=== PATIENT | female | born 1950 | race African-American/Black ===

== ENCOUNTER 2023-10-12 11:35 | Outpatient (CLI) | payer MEDICARE, SELFPAY ==
[2023-10-12 19:18] LABS: Alanine Aminotransferase 22 U/L (6-35); Albumin Level 4.6 g/dL (3.5-5.1); Alkaline Phosphatase 65 U/L (38-126); Anion Gap 6 mmol/L (8-16); Aspartate Amino Transferase 36 U/L (14-36); Blood Urea Nitrogen 15 mg/dL (7-17); Calcium 10.2 mg/dL (8.4-10.2); Carbon Dioxide 35 mmol/L (22-30); Chloride 98 mmol/L (98-107); Cholesterol 264 mg/dL (0-200); Estimated Glomerular Filt Rate > 60; Glucose 89 mg/dL (65-110); Potassium 3.9 mmol/L (3.4-5.0); Sodium 139 mmol/L (137-145); Triglycerides 66 mg/dL (<150)
[2023-10-12 19:20] LABS: LDL Cholesterol Direct 92 mg/dL
[2023-10-12 19:25] LABS: Vitamin D 25 Hydroxy 58.8 ng/mL
[2023-10-12 19:32] LABS: Basophils Absolute Auto 0.1 K/mm3 (0.0-0.1); Basophils Percent Auto 1.8 % (0.2-1.2); Eosinophils Absolute Auto 0.2 K/mm3 (0-0.3); Eosinophils Percent Auto 4.5 % (0-4.4); Hematocrit 45.8 % (37.0-47.0); Hemoglobin 14.5 g/dL (12.0-15.0); Lymphocytes Absolute Auto 1.71 K/mm3 (0.9-3.2); Lymphocytes Percent Auto 51.7 % (18.3-44.2); Mean Corpuscular HGB Conc 31.7 g/dl (32-36); Mean Corpuscular Hemoglobin 27.3 pg (26-34); Mean Corpuscular Volume 86.3 fl (80-100); Mean Platelet Volume 10.2 fl (7.4-10.4); Monocytes Absolute Auto 0.5 K/mm3 (0.1-0.6); Monocytes Percent Auto 15.4 % (2.6-8.5); Neutrophils Absolute Auto 0.9 K/mm3 (1.3-6.7); Neutrophils Percent Auto 26.6 % (45.5-73.1); Platelet Count Result 274 k/mm3 (150-375); Red Blood Count 5.31 M/mm3 (4.2-5.4); Red Cell Distribution Width 14.6 % (11.5-14.5); White Blood Count 3.3 K/mm3 (4.5-10.0)
[2023-10-12 19:41] LABS: Thyroid Stimulating Hormone 0.654 uIU/mL (0.465-4.680)
[2023-10-12 20:21] LABS: HDL Direct 152 mg/dL
== END 2023-10-12 11:36 | disposition home or self-care (01) ==
LOC: ANHGOSHLAB 11:37
PROVIDERS: PCP Clinical Nurse Specialist; Visit Provider Clinical Nurse Specialist
DX: E55.9 Vitamin D deficiency, unspecified (principal); I10 Essential (primary) hypertension; Z13.29 Encounter for screening for other suspected endocrine disorder
CPT/HCPCS: 36415; 80053; 80061; 82306; 84443; 85025

== ENCOUNTER 2024-10-15 10:43 | Outpatient (CLI) | payer MEDICARE, SELFPAY ==
[2024-10-15 18:56] LABS: Basophils Percent Auto 0.8 % (0.2-1.2); Eosinophils Absolute Auto 0.1 K/mm3 (0-0.3); Eosinophils Percent Auto 2.4 % (0-4.4); Hemoglobin 14.5 g/dL (12.0-15.0); Immature Granulocyte Absolute 0.01 K/mm3 (0.00-0.031); Immature Granulocyte Percent A 0.3 % (0-0.5); Lymphocytes Absolute Auto 1.77 K/mm3 (0.9-3.2); Lymphocytes Percent Auto 47.6 % (18.3-44.2); Mean Corpuscular Hemoglobin 28.2 pg (26-34); Mean Corpuscular Volume 85.6 fl (80-100); Mean Platelet Volume 10.3 fl (7.4-10.4); Monocytes Absolute Auto 0.6 K/mm3 (0.1-0.6); Monocytes Percent Auto 14.8 % (2.6-8.5); Neutrophils Absolute Auto 1.3 K/mm3 (1.3-6.7); Neutrophils Percent Auto 34.1 % (45.5-73.1); Platelet Count Result 244 k/mm3 (150-375); Red Blood Count 5.14 M/mm3 (4.2-5.4); Red Cell Distribution Width 14.8 % (11.5-14.5); White Blood Count 3.7 K/mm3 (4.5-10.0)
[2024-10-15 19:21] LABS: LDL Cholesterol Direct 72 mg/dL
[2024-10-15 19:22] LABS: Alanine Aminotransferase 22 U/L (6-35); Albumin Level 4.5 g/dL (3.5-5.1); Alkaline Phosphatase 71 U/L (38-126); Anion Gap 3 mmol/L (4-12); Aspartate Amino Transferase 51 U/L (14-36); Bilirubin,Total 1.1 mg/dL (0.2-1.3); Blood Urea Nitrogen 14 mg/dL (7-17); Calcium 10.3 mg/dL (8.4-10.2); Carbon Dioxide 36 mmol/L (22-30); Chloride 97 mmol/L (98-107); Cholesterol 260 mg/dL (0-200); Estimated Glomerular Filt Rate > 60; Glucose 97 mg/dL (65-110); Potassium 4.2 mmol/L (3.4-5.0); Sodium 136 mmol/L (137-145); Triglycerides 77 mg/dL (<150)
[2024-10-15 19:44] LABS: Thyroid Stimulating Hormone 0.847 uIU/mL (0.465-4.680)
[2024-10-15 21:54] LABS: HDL Direct 163 mg/dL
== END 2024-10-15 10:44 | disposition home or self-care (01) ==
PROVIDERS: PCP Internal Medicine; Visit Provider Clinical Nurse Specialist
DX: T78.40XA Allergy, unspecified, initial encounter (principal); I10 Essential (primary) hypertension; E55.9 Vitamin D deficiency, unspecified; Z13.29 Encounter for screening for other suspected endocrine disorder
CPT/HCPCS: 36415; 80053; 80061; 82306; 83735; 84443; 85025

== ENCOUNTER 2025-09-26 12:35 | Outpatient (CLI) | payer MEDICARE, SELFPAY ==
--- OUTSIDE RECORDS SUMMARY | 2025-09-26 19:35 | XMS_ITS | Clinical Summary ---
Author Organization [facility] Address [address] [place] [address] Care Team Providers Care Labor Arbitrator Hearing Office Name Role Phone Yohana Awan GIFTS OFFICER-GLASS CUTTING MACHINE OPERATOR Primary Care Provider [phone] Source Comments [facility],non-owned Affiliates and Associated Physician Practices is amultiple site organization consisting of ambulatory clinics and hospital sitesin [place], [place], [place] and [place]. This disclosure is being madepursuant to the Care Everywhere program and may not contain all information available regarding this patient. Last updated 18.[facility] Allergies No known active allergies Medications * Be aware that medications may not be up to date on this document. Alwaysverify current medications with the patient. vitamin D, cholecalciferol , 1000 UNIT tabletIndicatio ns:Pain of right thumb Take 2 (two) tablets by mouth once daily Active fluticasone propionate (FLONASE) 50 MCG/ACT nasal spray [place] 1-2 Sprays into each nostril once daily 16 g 11 5 Active Magnesium Gluconate (MAG-G) 500 (27 MG) MG Take 1 tablet by mouth 2 times daily 60 tablet 5 8 Active Multiple Vitamins-Minera ls (MULTIVITAL PO) Active neomycin-bacitr acin-polymyxin [id number] ophthalmic ointment Instill into left eye 3 times daily 1 tube 1 1 Active hydroCHLOROthia zide (Hydrodiuril) 25 MG tablet TAKE 1 TABLET BY MOUTH ONCE DAILY. PATIENT DUE FOR APPOINTMENT 100 tablet 2 3 Active propranolol CR 24hr (Inderal LA) 80 MG capsule TAKE 1 CAPSULE BY MOUTH ONCE DAILY. PATIENT NEEDS APPOINTMENT. 100 capsule 2 3 Active Active Problems Problem Noted Date Diagnosed Date Protein-calorie malnutrition, unspecified severi ty 12/16/2022 HTN (hypertension) 10/08/2008 MVP (mitral valve prolapse) 10/08/2008 Seasonal allergies History of colonic polyps Resolved Problems Problem Noted Date Diagnosed Date Resolved Date Atrophic vaginitis 08/21/2012 7 Screening for condition 10/08/200801/19 Overview (08/21/2015): Adult Abstraction Problem List Screening Dexa Scan (Bone Density): Result: Negative Date: 03/16/2006 Colonoscopy: Result: Not avail in chart Date: 01/2007 Occult Blood (Stool Cards): Result: Negative Date: 06/10/2008 Pap Smear: Result: Negative Date: 06/10/2008 Mammogram: Result: Negative Date: 06/19/2008 Hypertension 09/16/2015 Immunizations Immunization Administration Dates Next Due [employer] ([employer]) primary monoval ent 12+ yr 0.3mL Purple cap 02/02/2021,01/12/2021 FLU VACCINE TRI IIV3 SPLIT I M (FLUVIRIN) 10/01/2013 INFLUENZA VACCINE 09/11/2018,08/22/2017,08/25/20 15 INFLUENZA VACCINE, ADJUVANTE D, QUADR. (FLUAD QUADRIVALENT; 65Y+) (AIIV4) 09/12/2021 INFLUENZA VACCINE, HIGH-DOSE , QUADR. (FLUZONE HIGH-DOSE QUADRIVALENT; 65Y+), 0.7 ML (HD-IIV4) 07/28/2022,08/28/2020,08/22/2017,2015 INFLUENZA VACCINE, QUADR. (F LUZONE; FLULAVAL; FLUARIX; AFLURIA QUADRIVALENT; 6MO+), 0.5 ML (IIV4) 07/31/2019 Influenza Pf Intradermal (ADULT) 09/09/2014 PNEUMOCOCCAL PPSV23 08/30/2016 Pneumococcal Pcv13 Conj 09/16/2015 TDAP (7yrs+) 01/30/2014 Zoster Hzv Vacc Recombinant Inj Im 09/05/2019, Family History Medical History Relation Name Comments Hypertension Brother 4 Hypertension Mother Hypertension Sister 4 Relation Name Status Comments Brother 1 Alive Brother 2 Alive Brother 3 Alive Brother 4 Father Mother Alive Sister 1 Alive Sister 2 Alive Sister 3 Alive Sister 4 Social History Tobacco Use Types Packs/Day Years Used Date Smoking Tobacco: Former Smokeless Tobacco: Never Tobacco Cessation:Counseling Given: Not Answered Comments:about 20 yrs ago Alcohol Use Standard Drinks/Week Comments Yes 0 (1 standard drink = 0.6 oz pur e alcohol) socially PHQ-2 Answer Date Recorded PHQ2 TOTAL SCORE 0 12/16/2022 Comments No Sex and Gender Information Value Date Recorded Sex Assigned at Not on file Legal Sex Female 6:00 AM HOT BRAIDER Gender Identity Not on file Sexual Orientation Not on file 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 Not on file Not on file Last Filed Vital Signs Vital Sign Reading Time Taken Comments Blood Pressure 128/77 05/08/2025 9:16 AM CDT Pulse 64 05/08/2025 9:16 AM CDT Temperature 36.1 C (96.9 F) 05/08/2025 9:16 AM CDT Respiratory Rate 23 05/08/2025 9:16 AM CDT Oxygen Saturation 97% 05/08/2025 9:16 AM CDT Inhaled Oxygen Concentration - - Weight 49.9 kg (110 lb) 05/08/2025 7:32 AM CDT Height 157.5 cm (5' 2) 05/08/2025 7:32 AM CDT Body Mass Index 20.12 05/08/2025 7:32 AM CDT Plan of Treatment Health Maintenance Due Date Last Done Comments COLOGUARD (AGES 45-75) - COLON CA SCREENING 1950 CT COLONOGRAPHY - COLON CA SCREENING 1950 FIT - COLON CA SCREENING 1950 FLEX SIG - COLON CA SCREENING 1950 DTAP/TDAP/TD VACCINES (2 - Td or Tdap) 01/31/2024 01/30/2014 DEPRESSION SCREENING 11/21/2024 12/16/2022 MEDICARE AWV CALENDAR YEAR 2024 12/16/2022, 02/11/2021, 06/26/2019 Respiratory Syncytial Virus (RSV) Vaccine Pt: or over 60 yrs (1 - 1-dose 75+ series) 2025 COVID-19 VACCINE ( season) 2025 07/28/2022, 03/29/2022, 09/12/2021, Additional history exists INFLUENZA VACCINE (#1) 2025 , 09/12/2021, 08/28/2020, Additional history exists MAMMOGRAM 02/07/2027 02/07/2025, 01/19, 11/18/2022, Additional history exists COLON MONITORING 12/07/2027 12/07/2022, , 10/11/2017, Additional history exists Colorectal Cancer Screening 12/07/2027 LIPID TESTING 12/16/2027 12/16/2022, 07/2019, 06/27/2019, Additional history exists COLONOSCOPY - COLON CA SCREENING 12/07/2032 12/07/2022, 12/07/2022, 10/11/2017, Additional history exists HEPATITIS C SCREENING Completed 03/05/2013 PNEUMOCOCCAL VACCINE 50+ Completed 08/30/2016, 08/22 BONE DENSITY TESTING Completed 09/22/2016 ZOSTER VACCINE Completed 09/05/2019, 06/27/2019 HEPATITIS B VACCINE Aged Out No longe r eligible based on patient's age to complete this topic HIB VACCINE Aged Out No longer eligi ble based on patient's age to complete this topic HPV VACCINE Aged Out No longer eligi ble based on patient's age to complete this topic MENINGOCOCCAL (Group B) VACCINE SHARED DECISION-MAKING Aged Out No longer eligible based on patient's age to complete this topic MENINGOCOCCAL GROUPS A/C/Y/W VACCINE Aged Out No longer eligible based on patient's age to complete this topic Goals Goal Patient Goal Type Associated Problems Recent Progress Patient-Stated? Author Blood Pressure < 140/90 Blood Pressure 128/77(2024 9:16 AM CDT) Ericka Malcolm MA Medical Devices Implanted Type Area Career Services Representative Device Identifier Shelf Expiration Date Model / Serial / Lot Lens Iol 0 D +24.5 Stu Mod L Bcnvx - [id number] Implanted:Qty: 1 on 04/24/2025 by Mignon Garcia MD at [facility] Left: [employer] 05/01/2028 [id number] / [id number] / Clareon Uv Iol Implanted:Qty: 1 on 05/08/2025 by Mignon Garcia MD at [facility] Right: [employer] 03/09/2027 [id number] / [id number] / Description:Implant size kenn ified during time out by Dr. Garcia. / Annalisa JUARESdesign assembler Procedure Name Priority Date/Time Associated Diagnosis Comments MAMMO BILAT SCREENING W CHAN Routine 02/07/2025 11:43 AM CDT Encounter for screening mammogram for malignant neoplasm of breast LIPID PROFILE Routine 12/16/2022 11:45 AM HOT BRAIDER Mixed hyperlipidemia ENDOSCOPY, COLON, SCREENING 12/07/2022 DEXA BONE DENSITY 2 SITES Routine 09/22/2016 12:17 PM CDT Disorder of bone density and structure, unspecified Osteopenia HEPATITIS C ANTIBODY Routine 03/05/2013 9:25 AM CDT Need for hepatitis C screening test from Last 3 Months or Most Recently Relevant to Health Maintenance Results * Mammo Bilat Screening W Chan (02/07/2025 11:43 AM CDT) Anatomical Region Laterality Modality Breast Bilateral Mammography 02/07/2025 12:2 9 PM CDT Impressions 02/07/2025 12:33 PM CDT IMPRESSION: Annual screening mammography is recommended. OVERALL FINAL ASSESSMENT: BI-RADS Category 1: Negative. > Interpreting Provider: Augusto Benitez MD on 02/07/2025 12:33 PM Narrative 02/07/2025 12:33 PM CDT EXAMINATION: BILATERAL DIGITAL SCREENING MAMMOGRAM AND BILATERAL BREAST TOMOSYNTHESIS HISTORY: Screening. COMPARISON: Serial examinations dating back to September 29, 2010. TECHNIQUE: BILATERAL digital breast tomosynthesis (DBT) and synthetic 2D digital mammogram images were obtained (bilateral craniocaudal and mediolateral oblique projections) including computer aided detection (CAD.) BREAST PARENCHYMAL COMPOSITION:Category B: There are scattered areas of fibroglandular density. MAMMOGRAM FINDINGS: There is no suspicious finding in either breast. us David Stratton DO MAMMO ORDERABLES Final Resu lt * (ABNORMAL) LIPID PROFILE (12/16/2022 11:45 AM HOT BRAIDER) Cholesterol 265(H) 100 - 199 mg/dL [facility] ACCOUNT BILL Triglycerides 71 0 - 149 mg/dL [facility] ACCOUNT BILL HDL Cholesterol 141 >39 mg/dL [facility] ACCOUNT BILL VLDL Calculated 11 5 - 40 mg/dL [facility] ACCOUNT BILL LDL Calculated 113(H) 0 - 99 mg/dL [facility] ACCOUNT BILL Comment NOT AVAILABLE [facility] ACCOUNT BILL Comment: FASTING Result cannot be obtained for this observation. Blood BLOOD SPECIMEN / Unknown 12/16/2022 11:45 AM HOT BRAIDER 12/16/2022 Narrative Resulting Agency Comment Lab Testing performed at: [facility] [id number] [facility] [id number] us Alphonse Larose DO LAB - CHEMISTRY ORDERABLES Fi nal Result [facility] ACCOUNT BILL [address] [place] [address] * ENDOSCOPY, COLON, SCREENING (12/07/2022) 12/07/2022 Narrative 12/07/2022 Ordered by an unspecified provider. us Scanned Document GI PROCEDURE ORDERABLES Final R esult * DEXA BONE DENSITY 2 SITES (09/22/2016 12:17 PM CDT) Anatomical Region Laterality Modality Mammography 09/22/2016 12:2 3 PM CDT Narrative 09/22/2016 12:49 PM CDT BONE MINERAL DENSITY STUDY INDICATION: Osteoporosis screening. Postmenopausal status. FINDINGS: The average bone mineral density from L1 to L4 is 1.700 g/cm2. The T-score is 4.3 and the Z-score is 5.3. The average bone mineral density of the total mean hip is 1.242 g/cm2. The T-score is 1.9 and the Z-score is 2.2. ASSESSMENT: Findings consistent with normal total mean bone mineral density. There is no significant increased fracture risk. WORLD HEALTH ORGANIZATION DEFINITIONS OSTEOPENIA = -1 to -2.5 SD BELOW T SCORE. OSTEOPOROSIS = Less than -2.5 SD BELOW T SCORE Edited by Annetta To on 09/22/2016 12:26 PM Procedure Note Gricelda Chacko MD - 09/22/2016 BONE MINERAL DENSITY STUDY INDICATION: Osteoporosis screening. Postmenopausal status. FINDINGS: The average bone mineral density from L1 to L4 is 1.700 g/cm2. The T-score is 4.3 and the Z-score is 5.3. The average bone mineral density of the total mean hip is 1.242 g/cm2. The T-score is 1.9 and the Z-score is 2.2. ASSESSMENT: Findings consistent with normal total mean bone mineral density. There is no significant increased fracture risk. WORLD HEALTH ORGANIZATION DEFINITIONS OSTEOPENIA = -1 to -2.5 SD BELOW T SCORE. OSTEOPOROSIS = Less than -2.5 SD BELOW T SCORE Edited by Annetta To on 09/22/2016 12:26 PM Alphonse Larose DO DEXA ORDERABLES Final Result * HEPATITIS C ANTIBODY (03/05/2013 9:25 AM CDT) Hepatitis C Virus Antibody 0.1 0.0 - 0.9 s/co ratio [facility] INSURANCE BILL Comment: Negative: < 0.8 Indeterminate 0.8 - 0.9 Positive: > 0.9 . In order to reduce the incidence of a false positive result, the CDC recommends that all s/co ratios between 1.0 and 10.9 be confirmed with additional RIBA or PCR testing. Blood specimen (specimen) BLOOD SPECIMEN / Unknown 03/05/2013 9:25 AM CDT 03/05/2013 1:06 PM CDT Narrative Resulting Agency Comment [address] [id number] Louise Ortiz MD LAB - CHEMISTRY ORDERABLE S Final Result [facility] INSURANCE BILL [address] [place] [address] from Last 3 Months or Most Recently Relevant to Health Maintenance Insurance A[employer] MEDICARE ADV Advance Directives Documents on File Type Date Recorded Patient Furnace Checker Expl anation Adv Directive/Living Will/POA 10/08/2008 Care Teams Labor Arbitrator Hearing Office Relationship Specialty Start Date End Date Yohana Awan APRN-GLASS CUTTING MACHINE OPERATOR [address] [place] [address] PCP - General Certified Clinical Nurse Specialist 04/19/25
--- OUTSIDE RECORDS SUMMARY | 2025-09-26 19:35 | XMS_ITS | Clinical Summary ---
Author Organization [facility] [address] [place] [address] [place] [phone] Care Team Providers Care Fiberglass Bonding Machine Tender Name Role Phone Alphonse Larose DO Primary Care Provider Dianne lloyd Immunizations Immunization Administration Dates Next Due (PFIZER)(12 YR UP) COVID-19 VACCINE - EMERGENCY USE AUTHORIZATION, MRNA, [id number](PF) 30 MCG/0.3 ML IM SUSP 02/02/2021,01/12/2021 Social History Tobacco Use Types Packs/Day Years Used Date Smoking Tobacco: Never Assessed Comments Unknown Sex and Gender Information Value Date Recorded Sex Assigned at Not on file Legal Sex Female 9:20 PM GAS BURNER OPERATOR Gender Identity Not on file Sexual Orientation Not on file Plan of Treatment Health Maintenance Due Date Last Done Comments COLORECTAL SCREENING 1995 Colorectal Cancer Screening 1995 FIT-DNA Q 3 years 1995 FIT/FOBT Q 1 year 1995 Flex Sig/CT Colonography Q 5 years 1995 ZOSTER VACCINE (1 of 2) 2000 OSTEOPOROSIS SCREENING 2015 DTAP/TDAP/TD VACCINES (2 - Td or Tdap) 01/31/2024 RSV VACCINE (60+ or ) (1 - 1-dose 75+ series) 2025 INFLUENZA VACCINE (#1) 2025 07/31/2019 COVID-19 Vaccine (3 - season) 2025, 01/12/2021 PNEUMOCOCCAL VACCINE 50+ YEARS Completed 08/30/2016 , 09/16/2015 Insurance MEDICARE PART A AND B Care Teams Fiberglass Bonding Machine Tender Relationship Specialty Start Date End Date Alphonse Larose DO PCP - General Family Practice 01/12/21
== END 2025-09-26 12:36 | disposition home or self-care (01) ==
LOC: ANHAUDIO 12:35
PROVIDERS: PCP Internal Medicine; Visit Provider Otolaryngology
DX: H90.6 Mixed conductive and sensorineural hearing loss, bilateral (principal); H61.23 Impacted cerumen, bilateral; J31.0 Chronic rhinitis; J34.2 Deviated nasal septum
CPT/HCPCS: 92557; 92567

== ENCOUNTER 2025-10-23 11:22 | Outpatient (CLI) | payer MEDICARE, SELFPAY ==
--- OUTSIDE RECORDS SUMMARY | 2025-10-23 13:00 | XMS_ITS | Clinical Summary ---
Author Organization [facility] [address] Address [address] [place] [id number] Care Team Providers Care Five Roll Refiner Batch Mixer Name Role Phone Alphonse Larose DO Primary Care Provider Dianne lloyd Immunizations Immunization Administration Dates Next Due (PFIZER)(12 YR UP) COVID-19 VACCINE - EMERGENCY USE AUTHORIZATION, MRNA, [id number](PF) 30 MCG/0.3 ML IM SUSP 02/02/2021,01/12/2021 Social History Tobacco Use Types Packs/Day Years Used Date Smoking Tobacco: Never Assessed Comments Unknown Sex and Gender Information Value Date Recorded Sex Assigned at Not on file Legal Sex Female 9:20 PM BUFFET SERVER Gender Identity Not on file Sexual Orientation [...] MEDICARE PART A AND B Care Teams Five Roll Refiner Batch Mixer Relationship Specialty Start Date End Date Alphonse Larose DO PCP - General Family Practice 01/12/21
--- OUTSIDE RECORDS SUMMARY | 2025-10-23 13:00 | XMS_ITS | Clinical Summary ---
Author Organization [facility] Address [address] [facility] [place] [address] Care Team Providers Care Acupuncture Physician Name Role Phone Yohana Awan SHEARER HELPER-BAGGAGE SECURITY CHECKER Primary Care Provider [phone] Source Comments [facility],non-owned Affiliates and Associated Physician Practices is amultiple site organization consisting of ambulatory clinics and hospital sitesin [place], [place], [place] and [place]. This disclosure is being madepursuant to the Care Everywhere program and may not contain all information available regarding this patient. Last updated 18.[facility] Allergies No known active allergies Medications * Be aware that medications may not be up to date on this document. Alwaysverify current medications with the patient. vitamin D, cholecalciferol , 1000 UNIT tabletIndicatio ns:Pain of right thumb Take 2 (two) tablets by mouth once daily Active fluticasone propionate (FLONASE) 50 MCG/ACT nasal spray [place] 1-2 Sprays into each nostril once daily 16 g 11 5 Active Magnesium Gluconate (MAG-G) 500 (27 MG) MG Take 1 tablet by mouth 2 times daily 60 tablet 5 8 Active Multiple Vitamins-Minera ls (MULTIVITAL PO) Active neomycin-bacitr acin-polymyxin [id number] ophthalmic ointment Instill into left eye 3 [...] 09/16/2015 Immunizations Immunization Administration Dates Next Due Corindus primary monoval ent 12+ yr 0.3mL Purple [...] on file Legal Sex Female 6:00 AM GREY GOODS MARKER Gender Identity Not on file Sexual Orientation [...] Malcolm MA Medical Devices Implanted Type Area Apartment Groundskeeper Device Identifier Shelf Expiration Date Model / Serial / Lot Lens Iol 0 D +24.5 Stu Mod L Bcnvx - [id number] Implanted:Qty: 1 on 04/24/2025 by Mignon Garcia MD at [facility] Left: [employer] 05/01/2028 CCA0T0.245 / [id number] / [employer] Uv Iol Implanted:Qty: 1 on 05/08/2025 by Mignon Garcia MD at [facility] Right: [employer] 03/09/2027 [id number] / [id number] / Description:Implant size kenn ified during time out by Dr. Garcia. / Annalisa JUAREShigh school tutor Procedure Name Priority Date/Time Associated Diagnosis Comments MAMMO BILAT SCREENING W CHAN Routine 02/07/2025 11:43 AM CDT Encounter for screening mammogram for malignant neoplasm of breast LIPID PROFILE Routine 12/16/2022 11:45 AM GREY GOODS MARKER Mixed hyperlipidemia ENDOSCOPY, COLON, SCREENING 12/07/2022 DEXA [...] * (ABNORMAL) LIPID PROFILE (12/16/2022 11:45 AM GREY GOODS MARKER) Cholesterol 265(H) 100 - 199 mg/dL [facility] [...] BLOOD SPECIMEN / Unknown 12/16/2022 11:45 AM GREY GOODS MARKER 12/16/2022 Narrative Resulting Agency Comment Lab Testing performed at: [facility] [id number] [facility] [id number] us Alphonse Larose DO LAB - CHEMISTRY ORDERABLES Fi nal Result [facility] ACCOUNT BILL [address] [place] [address] * ENDOSCOPY, COLON, SCREENING (12/07/2022) 12/07/2022 Narrative [...] 1:06 PM CDT Narrative Resulting Agency Comment [address] [id number] Louise Ortiz MD LAB - CHEMISTRY ORDERABLE S Final Result [facility] INSURANCE BILL [address] [place] [address] from Last 3 Months or Most Recently Relevant to Health Maintenance Insurance AETNA MEDICARE ADV Advance Directives Documents on File Type Date Recorded Patient Sample Sawyer Expl anation Adv Directive/Living Will/POA 10/08/2008 Care Teams Acupuncture Physician Relationship Specialty Start Date End Date Yohana Awan APRN-BAGGAGE SECURITY CHECKER [address] [place] [address] PCP - General Certified Clinical Nurse Specialist 04/19/25
[2025-10-23 18:50] LABS: Alanine Aminotransferase 24 U/L (6-35); Albumin Level 4.2 g/dL (3.5-5.1); Alkaline Phosphatase 84 U/L (38-126); Anion Gap 2 mmol/L (4-12); Aspartate Amino Transferase 44 U/L (14-36); Bilirubin,Total 0.8 mg/dL (0.2-1.3); Blood Urea Nitrogen 14 mg/dL (7-17); Calcium 10.6 mg/dL (8.4-10.2); Carbon Dioxide 34 mmol/L (22-30); Chloride 101 mmol/L (98-107); Cholesterol 230 mg/dL (0-200); Estimated Glomerular Filt Rate > 60; Glucose 88 mg/dL (65-110); Potassium 3.8 mmol/L (3.4-5.0); Sodium 137 mmol/L (137-145); Total Protein 7.6 g/dL (6.3-8.2); Triglycerides 65 mg/dL (<150)
[2025-10-23 18:54] LABS: Hematocrit 40.0 % (37.0-47.0); Hemoglobin 13.0 g/dL (12.0-15.0); Immature Granulocyte Percent A 0.0 % (0-0.5); Lymphocytes Absolute Auto 1.69 K/mm3 (0.9-3.2); Mean Corpuscular HGB Conc 32.5 g/dl (32-36); Mean Corpuscular Hemoglobin 27.3 pg (26-34); Mean Corpuscular Volume 84.0 fl (80-100); Nucleated Red Blood Cells Absolute Auto 0.000 K/mm3 (0.0-0.012); Nucleated Red Blood Cells Perc 0.0 % (0.0-0.2); Platelet Count Result 240 k/mm3 (150-375); Red Blood Count 4.76 M/mm3 (4.2-5.4); White Blood Count 4.0 K/mm3 (4.5-10.0)
[2025-10-23 19:10] LABS: MALB Creatinine Ratio 8.0 mg/g (0-30)
[2025-10-23 19:15] LABS: HDL Direct 137 mg/dL
[2025-10-23 19:38] LABS: Hemoglobin A1C 4.0 % (<5.7)
== END 2025-10-23 11:23 | disposition home or self-care (01) ==
LOC: ANHGOSHLAB 11:23
PROVIDERS: PCP Internal Medicine; Visit Provider Clinical Nurse Specialist
DX: R73.01 Impaired fasting glucose (principal); I10 Essential (primary) hypertension; E83.52 Hypercalcemia; Z13.29 Encounter for screening for other suspected endocrine disorder
CPT/HCPCS: 36415; 80053; 80061; 82043; 83036; 85025

== ENCOUNTER 2025-10-28 10:37 | Outpatient (CLI) | payer MEDICARE, SELFPAY ==
[2025-10-28 19:03] LABS: Anion Gap 5 mmol/L (4-12); Blood Urea Nitrogen 14 mg/dL (7-17); Calcium 10.4 mg/dL (8.4-10.2); Carbon Dioxide 31 mmol/L (22-30); Chloride 99 mmol/L (98-107); Estimated Glomerular Filt Rate > 60; Glucose 82 mg/dL (65-110); Potassium 3.7 mmol/L (3.4-5.0); Sodium 135 mmol/L (137-145)
[2025-10-28 19:33] LABS: Parathyroid Intact 34.3 pg/mL (14.5-75.2)
[2025-10-29 14:08] LABS: Calcium, Ionized 5.4 mg/dL (4.5-5.6)
== END 2025-10-28 10:38 | disposition home or self-care (01) ==
LOC: ANHGOSHLAB 10:38
PROVIDERS: PCP Internal Medicine; Visit Provider Clinical Nurse Specialist
DX: E83.52 Hypercalcemia (principal)
CPT/HCPCS: 36415; 80048; 82330; 83970